=== PATIENT | female | born 1985 | race Two or more races ===

== ENCOUNTER 2020-10-09 14:45 | Emergency (ER) | payer OTHER ==
[~2020-10-09] VITALS: Ht 165.1 cm; Wt 52.2 kg
[2020-10-09 15:38] VITALS: BP 122/88
--- NOTE | 2020-10-09 17:27 | NUR ---
Patient discharged to home in stable condition. Written and verbal after care instructions given. Patient verbalizes understanding of instruction.
== END 2020-10-09 17:27 | disposition home or self-care (01) ==
LOC: ER 14:49
DX: J02.9 Acute pharyngitis, unspecified (principal)
CPT/HCPCS: 86403-TC; 87070-TC